=== PATIENT | female | born 1965 | race Caucasian/White ===

== ENCOUNTER → 2017-05-11 | Outpatient (CLI) | payer OTHER ==
--- NOTE | 2017-05-11 16:14 | REP ---
Right foot four views : There is no fracture or dislocation. Mineralization and joint spaces are normal. There are no calcifications or foreign bodies. Impression: Negative right foot . Signed by Sanchez Baltazar MD 05/11/2017 04:06 P
--- NOTE | 2017-05-11 16:15 | REP ---
Left knee five views: Comparison is to 2012. There is mild joint space narrowing and osteophytic growth of all three compartments, most advanced in the medial compartment compatible with mild tricompartment osteoarthritis, unchanged. There is no fracture, dislocation, or hemarthrosis. Mineralization is normal. No calcifications. Impression: Mild tricompartment osteoarthritis. No fracture or hemarthrosis. Signed by Sanchez Baltazar MD 05/11/2017 04:07 P
== END ==
LOC: M LRY 15:21
PROVIDERS: ATTEND Nurse Practitioner Family
DX: S99.921A Unspecified injury of right foot, initial encounter (principal); S89.92XA Unspecified injury of left lower leg, initial encounter; M17.12 Unilateral primary osteoarthritis, left knee; X58.XXXA Exposure to other specified factors, initial encounter; Y93.9 Activity, unspecified; Y92.9 Unspecified place or not applicable; Y99.8 Other external cause status

== ENCOUNTER → 2021-02-20 | Outpatient (REF) | payer OTHER ==
[2021-02-20 14:30] LABS: APPEARANCE, URINE HAZY (CLEAR); BACTERIA, URINE AUTO NEGATIVE (NEGATIVE); BILIRUBIN, URINE AUTO NEGATIVE (NEGATIVE); BLOOD, URINE BLOOD 1+ (NEGATIVE); CALCIUM OXALATE CRYSTALS MODERATE; COLOR, URINE YELLOW (YELLOW); GLUCOSE, URINE (UA) AUTO NEGATIVE (NEGATIVE); KETONE, URINE AUTO NEGATIVE (NEGATIVE); LEUKOCYTE ESTERASE, URINE AUTO 2+ (NEGATIVE); NITRITE, URINE AUTO NEGATIVE (NEGATIVE); PROTEIN, URINE AUTO NEGATIVE (NEGATIVE); RBC, URINE AUTO 1 /HPF (0-3); SQUAMOUS EPITHELIAL CELL UR AU 0 /HPF (0-6); UROBILINOGEN, URINE AUTO 0.2 mg/dL (0.0-2.0); WBC, URINE AUTO 8 /HPF (0-3)
== END ==
LOC: M SMT 12:53
PROVIDERS: ATTEND Nurse Practitioner Women's Health
DX: N39.0 Urinary tract infection, site not specified (principal)

== ENCOUNTER → 2021-03-02 | Outpatient (CLI) | payer OTHER ==
--- NOTE | 2021-03-02 17:46 | REP ---
INDICATION: FREQUENT UTI, BLADDER PAIN COMPARISON: None TECHNIQUE: Real time obando scale ultrasound examination using curved array transducer. FINDINGS: Kidneys are normal in contour, size, echogenicity, and reniform shape. No hydronephrosis, nephrolithiasis, cystic or renal mass lesion. Right kidney measures 11.0 x 4.3 x 4.0 cm. Left kidney measures 10.9 x 4.0 x 4.8 cm. IMPRESSION: 1. Normal renal ultrasound <Electronically signed by Aaron Carolina > 03/02/21 [id number]
--- NOTE | 2021-03-02 17:47 | REP ---
INDICATION: FREQUENT UTI, BLADDER PAIN COMPARISON: None TECHNIQUE: Real time B-mode ultrasound examination using curved array transducer. FINDINGS: Bladder is normal in appearance without wall thickening or mass lesion. Bilateral ureteral jets are identified. Prevoid bladder measures 7.1 x 7.3 x 5.4 cm (183 cc) Postvoid bladder was completely emptied Postvoid residual: 0% IMPRESSION: Less than expected prevoid full bladder. Otherwise normal bladder ultrasound. <Electronically signed by Aaron Carolina > 03/02/21 [id number]
== END ==
LOC: M RAD 16:10
PROVIDERS: ATTEND Nurse Practitioner Women's Health
DX: N39.0 Urinary tract infection, site not specified (principal); R39.89 Other symptoms and signs involving the genitourinary system

== ENCOUNTER → 2022-10-01 | Outpatient (CLI) | payer MEDICARE ==
[2022-10-01 15:29] LABS: BASO # 0.1 10^3/uL (0.0-0.2); EOS # 0.4 10^3/uL (0.0-0.5); HEMATOCRIT 42.1 % (36.0-47.0); LYMPH # 1.6 10^3/uL (1.5-5.0); LYMPH % 18.2 % (24.0-44.0); MEAN CORPUSCULAR HEMOGLOBIN 29.8 pg (27.0-33.0); MEAN CORPUSCULAR HGB CONC 30.9 g/dl (32.0-36.5); MEAN CORPUSCULAR VOLUME 96.6 fl (80.0-96.0); MONO # 0.9 10^3/uL (0.0-0.8); NEUTROPHILS # 5.8 10^3/uL (1.5-8.5); NEUTROPHILS % 65.6 % (36.0-66.0); PLATELET COUNT, AUTOMATED 317 10^3/uL (150-450); RED BLOOD COUNT 4.36 10^6/uL (4.00-5.40); WHITE BLOOD COUNT 8.8 10^3/uL (4.0-10.0)
[2022-10-01 15:38] LABS: ERYTHROCYTE SEDIMENTATION RATE 69 mm/hr (0-30)
[2022-10-01 15:52] LABS: ALBUMIN 3.8 G/DL (3.2-5.2); ALKALINE PHOSPHATASE 80 U/L (46-116); ALT/SGPT 38 U/L (7.0-40); AST/SGOT 31 U/L (<34); BILIRUBIN,TOTAL 0.3 MG/DL (0.3-1.2); BLOOD UREA NITROGEN 10 MG/DL (9-23); CALCIUM LEVEL 9.6 MG/DL (8.5-10.1); CARBON DIOXIDE LEVEL 25 MMOL/L (20-31); CHLORIDE LEVEL 106 MMOL/L (98-107); CREATININE FOR GFR 0.77 MG/DL (0.55-1.30); GLOMERULAR FILTRATION RATE > 60.0 (>51); GLUCOSE, FASTING 78 MG/DL (60-100); POTASSIUM SERUM 3.9 MMOL/L (3.5-5.1); SODIUM LEVEL 143 MMOL/L (136-145); TOTAL PROTEIN 7.1 G/DL (5.7-8.2)
[2022-10-01 16:05] LABS: HEPATITIS B SURFACE ANTIGEN NEGATIVE (NEGATIVE)
[2022-10-01 16:18] LABS: HIV 1&2 SCREEN CENTAUR NEGATIVE (NEGATIVE)
[2022-10-01 16:26] LABS: HEPATITIS C VIRUS ABY INDEX 0.1 INDEX (<0.8)
[2022-10-03 09:07] LABS: HSV TYPE I IgG SPECIFIC 1.01 index (0.00-0.90)
== END ==
LOC: M PLALAB 12:30
PROVIDERS: ATTEND Internal Medicine Infectious Disease
DX: R10.11 Right upper quadrant pain (principal); R63.4 Abnormal weight loss; R21 Rash and other nonspecific skin eruption; I10 Essential (primary) hypertension; R61 Generalized hyperhidrosis

== ENCOUNTER → 2022-10-03 | Outpatient (REF) | payer MEDICARE | LOC: M SFHCPLAZ 10:09 | PROVIDERS: ATTEND Internal Medicine Infectious Disease | DX: I10 Essential (primary) hypertension (principal); R61 Generalized hyperhidrosis; R10.11 Right upper quadrant pain; R63.4 Abnormal weight loss; R21 Rash and other nonspecific skin eruption ==

== ENCOUNTER → 2024-03-15 | Outpatient (CLI) | payer MEDICARE ==
[2024-03-16 23:32] LABS: CYCLIC CITRULLINATED PEPTIDE < 16 UNITS (<20)
[2024-03-17 08:58] LABS: QuantiFERON-TB Gold Plus NEGATIVE (NEGATIVE)
[2024-03-18 01:17] LABS: CRYTPOCOCCUS SOURCE Serum
== END ==
LOC: M LAB 12:09
PROVIDERS: ATTEND Internal Medicine Pulmonary Disease
DX: R91.8 Other nonspecific abnormal finding of lung field (principal)

== ENCOUNTER → 2024-04-05 | Outpatient (CLI) | payer MEDICARE ==
[~2024-04-05] MED LIST: ALBU2.5V10 INH; ALBU8.5H INH; GABA-1171 PO; OXYC10TA12 PO; SYMB16INH INH
== END ==
LOC: M RAD 08:12
PROVIDERS: ATTEND Internal Medicine Pulmonary Disease
DX: R91.8 Other nonspecific abnormal finding of lung field (principal)

== ENCOUNTER 2024-04-07 07:01 | Day surgery (SDC) | payer MEDICARE ==
[~2024-04-07] VITALS: Ht 165.1 cm; Wt 69.5 kg
[2024-04-07 07:43] LABS: HEMATOCRIT 41.6 % (36.0-47.0); HEMOGLOBIN 13.6 g/dl (12.0-15.5); MEAN CORPUSCULAR HEMOGLOBIN 30.7 pg (27.0-33.0); MEAN CORPUSCULAR HGB CONC 32.7 g/dl (32.0-36.5); MEAN CORPUSCULAR VOLUME 93.9 fl (80.0-96.0); PLATELET COUNT, AUTOMATED 311 10^3/uL (150-450); RED BLOOD COUNT 4.43 10^6/uL (4.00-5.40); WHITE BLOOD COUNT 7.3 10^3/uL (4.0-10.0)
[2024-04-07] MEDS ORDERED: fentaNYL 100 MCG/2 ML INJECTION As Ordered ONE (07:58)
[2024-04-07] MEDS ORDERED: MIDAZOLAM INJ 2MG/2ML VIAL As Ordered ONE (07:58)
[2024-04-07] MEDS ORDERED: ROCURONIUM BROMIDE 50MG/5ML VIAL As Ordered ONE (07:59)
[2024-04-07] MEDS ORDERED: LIDOCAINE 2% 100MG/5ML SDV (FOR ANES.) As Ordered ONE (08:00)
[2024-04-07] MEDS ORDERED: LR 1,000 ML IV SCH ×2 (08:00→10:15)
[2024-04-07 08:12] LABS: BLOOD UREA NITROGEN 14 MG/DL (9-23); CALCIUM LEVEL 9.3 MG/DL (8.5-10.1); CARBON DIOXIDE LEVEL 29 MMOL/L (20-31); CHLORIDE LEVEL 109 MMOL/L (98-107); CREATININE FOR GFR 0.66 MG/DL (0.55-1.30); GLOMERULAR FILTRATION RATE > 60.0 (>51); GLUCOSE, FASTING 98 MG/DL (60-100); POTASSIUM SERUM 3.8 MMOL/L (3.5-5.1); SODIUM LEVEL 142 MMOL/L (136-145)
[2024-04-07] MEDS ORDERED: ONDANSETRON 4MG 2ML VIAL As Ordered ONE (08:17)
[2024-04-07] MEDS ORDERED: propofoL 200 MG/20 ML VIAL As Ordered ONE (08:17)
[2024-04-07] MEDS: ALBUTEROL SULFATE 2.5MG/0.5ML INH NEB SOLN INH ONE (08:59)
[2024-04-07] MEDS: LIDOCAINE PRES-FREE 2% 10ML AMP INH ONE (09:00)
[2024-04-07] MEDS ORDERED: SUGAMMADEX SODIUM 500 MG/5 ML VIAL (BRIDION) As Ordered ONE (09:35)
[2024-04-07] MEDS ORDERED: ePHEDrine SULFATE 25 MG/5 ML(5MG/ML) SYRINGE As Ordered ONE (09:37)
[2024-04-07] MEDS: CETACAINE SPRAY 5GM As Ordered ONE (10:00)
[2024-04-07] MEDS ORDERED: ONDANSETRON 4MG 2ML VIAL IV PRN (10:15)
[2024-04-07] MEDS ORDERED: fentaNYL 100 MCG/2 ML INJECTION IV PRN (10:15)
[2024-04-07] MEDS: EPINEPHrine 1MG/10ML SYRINGE 1.5IN As Ordered ONE (10:28)
[2024-04-07] MEDS: THROMBIN 5,000 UNITS VIAL As Ordered ONE (10:28)
[2024-04-07] MEDS: LIDOCAINE VISCOUS 2% SOLN 15ML UDC As Ordered ONE (10:29)
[2024-04-07] MEDS: LIDOCAINE 1% MDV 20ML VIAL As Ordered ONE (10:29)
[2024-04-07 11:30] VITALS: BP 136/75; TEMP 97.1; O2SAT 100
== END 2024-04-07 12:00 | disposition home or self-care (01) ==
LOC: M SDC 07:01
PROVIDERS: ATTEND Internal Medicine Pulmonary Disease
DX: R91.8 Other nonspecific abnormal finding of lung field (principal); K76.9 Liver disease, unspecified; E04.9 Nontoxic goiter, unspecified; F43.10 Post-traumatic stress disorder, unspecified; Z79.51 Long term (current) use of inhaled steroids; Z79.52 Long term (current) use of systemic steroids; Z88.5 Allergy status to narcotic agent; Z88.8 Allergy status to other drugs, medicaments and biological substances; Z91.018 Allergy to other foods; Z91.040 Latex allergy status; F12.10 Cannabis abuse, uncomplicated
CPT/HCPCS: 31624; 31627; 31628; 31654; 36415; 71045; 76000; 80048; 81025; 85027; 87070; 87102; 87116; 87205; 87206; 88108; 88305; 88313; 93005; C1601; J0171; J1100; J2250; J2405; J3010; S2900

== ENCOUNTER → 2024-06-04 | Outpatient (CLI) | payer MEDICARE | LOC: M RAD 08:05 | PROVIDERS: ATTEND Internal Medicine Gastroenterology | DX: R74.01 Elevation of levels of liver transaminase levels (principal); K76.0 Fatty (change of) liver, not elsewhere classified ==